=== PATIENT | female | born 1990 | race Caucasian/White ===

== ENCOUNTER 2016-06-13 02:17 | Emergency (ER) | payer OTHER ==
[~2016-06-13] VITALS: Ht 167.6 cm; Wt 86.2 kg
[~2016-06-13 02:17] MED LIST: REGLAN10 M1 PO
--- NOTE | 2016-06-13 02:45 | ED NECK/BACK PAIN COMPLAINT ---
History of Present Illness General Chief Complaint: Low Back Pain/Injury Stated Complaint: LOWER BACK PAIN Source: patient Exam Limitations: no limitations Vital Signs & Intake/Output Vital Signs & Intake/Output Vital Signs Date Time Temp Pulse Resp B/P Pulse O2 O2 Flow FiO2 Ox Delivery Rate 06/13 0238 96.7 100 18 123/88 100 Room Air Room Air Allergies Coded Allergies: No Known Allergies (12/05/15) Reconcile Medications Ibuprofen 400 MG TABLET 1 TAB PO TID PRN baack pain Metoclopramide HCl (Reglan) 10 MG TABLET 1-2 TAB PO 4 TIMES/DAY PRN NAUSEA/ VOMITING 30 minutes before meals and bedtime Polyethylene Glycol 3350 (Miralax) 17 GRAM POWD.PACK 1 PAC PO DAILY constipation dissolve in water Triage Note: SEE NURSES NOTE Triage Nurses Notes Reviewed? yes : No Patient currently breastfeeds: No HPI: 26/ who work as a nurse, presented to [facility] complaining of back pain that started around Frost and is getting worse. Patient pain started as constant 2/10 that sometimes radiates to the right leg as numbness or tingling. 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 Patient reported fever, chills, diaphoresis for the past week. Patient has depression and anxiety however she is not following with any psychiatric. She started to cry during history taking. Patient denies suicidal or homicidal ideation. Patient denies dysuria, hematuria, polyuria, nausea, vomiting, chest pain, palpitation. 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 see below for history Family History Hx Contributory? No (KAELYN AC,MAGO) Review of Systems Review of Systems Constitutional: Reports: see HPI. ([facility] AC,[facility]) Review of Systems Constitutional: Reports: no symptoms. Eyes: Reports: no symptoms. Ears, Nose, Throat, Mouth: Reports: no symptoms. Respiratory: Reports: no symptoms. Cardiovascular: Reports: no symptoms. Gastrointestinal/Abdominal: Reports: no symptoms. Musculoskeletal: Reports: see HPI, back pain. Skin: Reports: no symptoms. Neurological/Psychological: Reports: no symptoms. All Other Systems: Reviewed and Negative (MAGO ART MD) Physical Exam Physical Exam General Appearance: well developed/nourished, no apparent distress, alert, awake , anxious Head: atraumatic, normal appearance Eyes: Bilateral: normal appearance, PERRL, EOMI. Neck: normal inspection, full range of motion Respiratory: normal breath sounds, chest non-tender, no respiratory distress Cardiovascular: regular rate/rhythm Gastrointestinal: soft, non-tender Back: pain overlower Ts upper Ls, severe right flank tenderness Straight Leg Raising: Left: Pain at ____ degrees. (MELINDA AC,[facility]) Physical Exam General Appearance: well developed/nourished, mild distress Head: atraumatic Eyes: Bilateral: PERRL, EOMI. Ears, Nose, Throat, Mouth: hearing grossly normal Respiratory: normal breath sounds Cardiovascular: regular rate/rhythm Gastrointestinal: soft, non-tender Back: normal inspection Extremities: normal range of motion Sensory: Medial Le: L4R, L4L. Top of Foot: 2: L5R, L5L. Sole of Foot: 2: SIR, SADE. Motor: Deficit L4 Right: No Deficit L4 Left: No Deficit L5 Right: No Deficit L5 Left: No Deficit S1 Right: No Deficit S1 Right: No DTR: Deficit L4 Left: No Deficit L4 Right: No Deficit S1 Left: No Deficit S1 Right: No Patellar: 3: L4 Right, L4 Left. Neurologic/Psych: awake, alert, oriented x 3, normal mood/affect Skin: intact, normal color, warm/dry (MAGO ART MD) Progress Differential Diagnosis: constipation, small kidney stones, muscle strain Plan of Care: Orders Procedure Date/time Status LIPASE 06/13 310 Complete COMPREHENSIVE METABOLIC PANEL 06/13 310 Complete CBC WITHOUT DIFFERENTIAL 06/13 310 Complete URINALYSIS 06/13 305 Complete HUMAN BETA HCG SCREEN 06/13 305 Complete Laboratory Tests 06/13/16337: Total Beta HCG NEGATIVE 06/13/16337: Anion Gap 14, Estimated GFR > 60, BUN/Creatinine Ratio 20.0, Glucose 100 H, Calcium 9.7, Total Bilirubin 0.4, AST 16, ALT 26, Alkaline Phosphatase 38, Total Protein 7.2, Albumin 4.5, Globulin 2.7, Albumin/Globulin Ratio 1.7, Lipase 77, CBC w Diff NO MAN DIFF REQ, RBC 4.48, MCV 88.2, MCH 29.6, RDW 13.0, MPV 8.0, Gran % 70.4, Lymphocytes % 19.3 L, Monocytes % 7.1, Eosinophils % 3.0, Basophils % 0.2, Absolute Granulocytes 4.1, Absolute Lymphocytes 1.1 L, Absolute Monocytes 0.4, Absolute Eosinophils 0.2, Absolute Basophils 0, PUBS MCHC 33.5 06/13/16 0044: Urine Color YEL, Urine Clarity CLDY H, Urine pH 6.0, Ur Specific [place] >= 1.030, Urine Protein 30 H, Urine Ketones TRACE H, Urine Nitrite NEG, Urine Bilirubin NEG, Urine Urobilinogen 1.0, Ur Leukocyte Esterase TRACE H, Ur Microscopic SEDIMENT EXAMINED, Urine RBC 3-5, Urine WBC 3-5 H, Urine Crystals RARE CA OX, Urine Hemoglobin SMALL H, Urine Glucose NEG On examination patient has right flank tenderness, a CT was done and did not show any hydronephrosis or kidney stones however it shows Mild colonic stool burden, particularly in the ascending colon. This can explain her right flank tenderness. Urinalysis was done and did not show UTI however that suggest mild dehydration. Patient refused taking pain medication. Patient will be given MiraLAX and ibuprofen when necessary, she will be advised to drink plenty amount of water to help the small stones if they present and because her urine was concentrated, this will also help her constipation (MELINDA AC,[facility]) Departure Departure Disposition: HOME OR SELF CARE Condition: Stable Clinical Impression Primary Impression: Constipated Ruled Out Impressions: Kidney stone, UTI (urinary tract infection) Referrals: UNKNOWN (PCP/Family) Additional Instructions: Please drink plenty amount of water, please introduce a good amount of fibers to your diet. He will be prescribed MiraLAX. Please come back if your symptoms did not improve or get worse Departure Forms: Customer Survey General Discharge Information Prescriptions: Current Visit Scripts Polyethylene Glycol 3350 (Miralax) 1 PAC PO DAILY #30 PAC dissolve in water Ibuprofen 1 TAB PO TID PRN baack pain #30 TAB (MELINDA AC,[facility]) Resident Co-Sign Statement Statement: ED Attending supervision documentation- X I saw and evaluated the patient. I have also reviewed all the pertinent lab results and diagnostic results. I agree with the findings and the plan of care as documented in the Resident's documentation. [] I have reviewed the ED Record and agree with the Resident's documentation. [] Additions or exceptions (if any) to the Resident's note and plan are summarized below: [] (KAELYN AC,MAGO)
[2016-06-13 03:50] LABS: ABSOLUTE BASOPHIL COUNT 0 /CUMM (0.0-0.2); ABSOLUTE EOSINOPHIL COUNT 0.2 /CUMM (0.0-0.7); ABSOLUTE GRANULOCYTE CT 4.1 /CUMM (1.4-6.5); ABSOLUTE LYMPH COUNT 1.1 /CUMM (1.2-3.4); ABSOLUTE MONOCYTE COUNT 0.4 /CUMM (0.10-0.60); BASOPHIL % 0.2 % (0.0-2.0); GRANULOCYTE % 70.4 % (42.2-75.2); HEMATOCRIT 39.5 % (37-47); MEAN CORPUSCULAR HGB 29.6 PG (27.0-31.0); MEAN CORPUSCULAR HGB CONC 33.5 G/DL (33.0-37.0); MEAN CORPUSCULAR VOLUME 88.2 FL (81.0-99.0); PLATELET COUNT 181 /CUMM (130-400); RED BLOOD CELL CT 4.48 /CUMM (4.20-5.40); WHITE BLOOD CELL COUNT 5.9 /CUMM (4.8-10.8)
--- NOTE | 2016-06-13 04:56 | CT SCAN REPORT ---
EXAMINATION: CT ABDOMEN AND PELVIS WITHOUT CONTRAST CLINICAL INFORMATION: Back pain. Right flank tenderness. COMPARISON: None. TECHNIQUE: Multidetector volumetric imaging was performed from the superior aspect of the liver through the pubic symphysis. Sagittal and coronal reformatted images were obtained on the technologist's workstation. DLP: 586 mGy-cm. FINDINGS: LUNG BASES: The visualized lung bases are unremarkable. LIVER, GALLBLADDER, AND BILIARY TREE: The liver is normal in size, shape, and attenuation. No focal hepatic lesion or biliary ductal dilatation is present. The gallbladder is contracted with no evidence of radiopaque gallstones, gallbladder wall thickening, or obvious pericholecystic inflammatory changes. PANCREAS: Unremarkable. SPLEEN: Unremarkable. ADRENAL GLANDS: Unremarkable. KIDNEYS AND URETERS: The kidneys are normal in size, shape, and attenuation. No hydronephrosis, hydroureter, or calculi seen. No perinephric stranding. BLADDER: Decompressed and not well assessed. GASTROINTESTINAL TRACT: The stomach and small bowel appear unremarkable. No dilated loops of bowel or evidence of obstruction. Normal appendix. No colonic wall thickening or inflammatory change. Mild colonic stool burden, particularly in the ascending colon. No free air or free fluid. ABDOMINAL WALL: No significant hernia is appreciated. LYMPH NODES: Normal. VASCULAR: Unremarkable. PELVIC VISCERA: The uterus and adnexa are unremarkable. OSSEOUS STRUCTURES: No acute or suspicious osseous abnormalities. IMPRESSION: No acute finding of the abdomen or pelvis. No hydronephrosis or nephrolithiasis. Mild colonic stool burden, particularly in the ascending colon.
[2016-06-13] MEDS ORDERED: MIRALAX17 G1 PO (05:35)
[2016-06-13] MEDS ORDERED: IBUPROFEN400 M1 PO (05:37)
[2016-06-13 05:41] VITALS: BP 118/74
== END 2016-06-13 05:42 ==
LOC: ERH 02:17
PROVIDERS: Student in an Organized Health Care Education/Training Program
DX: K59.00 Constipation, unspecified (principal); N20.0 Calculus of kidney; N39.0 Urinary tract infection, site not specified
CPT/HCPCS: 74176; 81001